=== PATIENT | male | born 1975 | race Caucasian/White ===

== ENCOUNTER → 2018-01-22 | Outpatient (CLI) | payer OTHER ==
[~2018-01-22] MED LIST: ALBU90OI INH; CEPH500 PO; IBUP800 PO; NAPR500 PO; OXYACE5T PO; PENVK500 PO; Percocet 5-3251 EACH PO; RANI150 PO; SULTRIDS PO; Ultram50 MG PO
[2018-01-22 13:30] LABS: BASOPHILS ABSOLUTE AUTO 0.05 K/mm3 (0.00-0.23); BASOPHILS PERCENT AUTO 1 % (0-2); EOSINOPHILS PERCENT AUTO 2 % (0-6); Hemoglobin 14.9 g/dL (13.5-17.5); IMMATURE GRAN ABSOLUTE AUTO 0.08 K/mm3 (0.00-0.10); IMMATURE GRAN PERCENT AUTO 1 % (0-1); LYMPHOCYTES ABSOLUTE AUTO 1.11 K/mm3 (0.84-5.20); LYMPHOCYTES PERCENT AUTO 11 % (21-46); MONOCYTES ABSOLUTE AUTO 0.73 K/mm3 (0.16-1.47); MONOCYTES PERCENT AUTO 7 % (4-13); Mean Corpuscular HGB Conc 34.7 g/dL (31.5-36.5); Mean Corpuscular Volume 81 fL (80-100); Mean Platelet Volume 9.8 fL (9.1-12.4); NEUTROPHILS ABSOLUTE AUTO 7.67 K/mm3 (1.96-9.15); NEUTROPHILS PERCENT AUTO 78 % (41-73); Platelet Count 263 K/mm3 (150-400); RDW Coefficient Variation 12.1 % (11.7-14.2); Red Blood Cell Count 5.33 M/mm3 (4.30-5.90); White Blood Cell Count 9.84 K/mm3 (4.00-11.30)
[2018-01-22 13:47] LABS: Anion Gap 9 mmol/L (6-16); Blood Urea Nitrogen 13 mg/dL (8-24); Bun/Creatinine Ratio 13.5 (12.0-20.0); CO2, Blood 28 mmol/L (21-32); Calcium, Blood 8.9 mg/dL (8.5-10.1); Chloride, Blood 104 mmol/L (98-108); Creatinine, Blood 0.96 mg/dL (0.60-1.20); Glomerular Filtration Rate >60 (60-); Glucose, Blood 99 mg/dL (70-99); Potassium, Blood 4.2 mmol/L (3.5-5.5); Sodium, Blood 141 mmol/L (136-145)
[2018-01-22 13:50] LABS: Troponin I <0.017 ng/mL (0.000-0.040)
== END ==
LOC: LAB SHORT 13:23 → LAB EV 13:23
PROVIDERS: Physician Assistant Surgical
DX: R07.9 Chest pain, unspecified (principal)
CPT/HCPCS: 80048; 84484; 85025

== ENCOUNTER → 2018-12-21 | Outpatient (CLI) | payer OTHER ==
[2018-12-21 13:27] LABS: Alanine Aminotransfer (ALT/SGP 64 U/L (12-78); Albumin, Blood 4.1 g/dL (3.4-5.0); Albumin/Globulin Ratio 1.1 (0.8-1.8); Alk Phos 92 U/L (40-126); Anion Gap 9 mmol/L (6-16); Aspartate Aminotrans (AST/SGOT 38 U/L (12-37); Bilirubin, Total 0.4 mg/dL (0.1-1.0); Blood Urea Nitrogen 15 mg/dL (8-24); Bun/Creatinine Ratio 16.5 (12.0-20.0); CO2, Blood 28 mmol/L (21-32); Chloride, Blood 101 mmol/L (98-108); Creatinine, Blood 0.91 mg/dL (0.60-1.20); Globulin, Blood 3.9 g/dL (2.2-4.0); Glomerular Filtration Rate >60 (60-); Glucose, Blood 93 mg/dL (70-99); Potassium, Blood 4.2 mmol/L (3.5-5.5); Sodium, Blood 138 mmol/L (136-145)
[2018-12-21 14:01] LABS: Prostate Specific Antigen 0.896 ng/mL (0.000-4.000)
== END | disposition home or self-care (01) ==
LOC: LAB EV 13:10 → LAB SHORT 13:10
PROVIDERS: Physician Assistant
DX: R35.0 Frequency of micturition (principal)
CPT/HCPCS: 80053; 83036; G0103

== ENCOUNTER 2019-02-06 11:16 | Day surgery (SDC) | payer OTHER ==
[~2019-02-06] VITALS: Ht 188 cm; Wt 185.5 kg
[~2019-02-06 11:16] MED LIST changes: +BACL10 PO; +Cymbalta60 MG PO; +GABA300 PO; +Norco 5-325 Ta1 EACH PO
--- NOTE | 2019-02-06 11:42 | NUR ---
AMBULATORY INTO [facility]. HISTORY AND ALLERGIES REVIEWED. NPO STATUS CONFIRMED. LUNGS WITH SCATTERED INSPIRATORY AND EXPIRATORY WHEEZES THROUGH OUT. DR. CANTU AWARE. DUONEB GIVEN.
--- NOTE | 2019-02-06 12:07 | NUR ---
ULTRASOUND UTILIZED TO PLACE #18 GUAGE IV TO RIGHT UPPER ARM.
--- NOTE | 2019-02-06 15:41 | NUR ---
INTO STEP FROM PACU RECIEVED REPORT AND PATIENT. VSS
--- NOTE | 2019-02-06 16:18 | NUR ---
GIVEN 2 RX PILLS PRIOR TO DISCHARGE PATIENT DRESSED AND ESCORTED OUT AMBULATORY WITH RN. SENT HOME WITH ALL BELONGINGS AND DISCHARGE INSTRUCTIONS
--- NOTE | 2019-02-07 12:00 | NUR ---
02/07/19 1200 Papst,Daniel D SIDE CORRECTED IN IMPLANT CHARTING
== END 2019-02-06 23:03 | disposition home or self-care (01) ==
LOC: ORSCMMR 11:16
PROVIDERS: Orthopaedic Surgery
PROC: 0LQ40ZZ Repair Left Upper Arm Tendon, Open Approach (ICD-10-PCS; principal; 2019-02-06 12:00)
DX: M66.822 Spontaneous rupture of other tendons, left upper arm (principal); G47.33 Obstructive sleep apnea (adult) (pediatric); Z87.891 Personal history of nicotine dependence; G62.9 Polyneuropathy, unspecified; E66.01 Morbid (severe) obesity due to excess calories; Z68.43 Body mass index [BMI] 50.0-59.9, adult
CPT/HCPCS: C1713; J0690; J1100; J1200; J1885; J2250; J2405; J2704; J3010; J7120

== ENCOUNTER 2019-05-27 10:42 | Emergency (ER) | payer OTHER ==
[~2019-05-27] VITALS: Ht 188 cm; Wt 178.7 kg
[2019-05-27] MEDS ORDERED: Adipex-P37.5 M1 PO (11:03)
[2019-05-27] MEDS ORDERED: QUET25 PO (11:03)
== END 2019-05-27 12:06 | disposition home or self-care (01) ==
LOC: ER 10:42
DX: S40.011A Contusion of right shoulder, initial encounter (principal); I10 Essential (primary) hypertension; Z88.1 Allergy status to other antibiotic agents; Z79.899 Other long term (current) drug therapy; W22.8XXA Striking against or struck by other objects, initial encounter
CPT/HCPCS: 73030; 99283-25

== ENCOUNTER → 2019-07-25 | Outpatient (CLI) | payer OTHER ==
[~2019-07-25] MED LIST changes: +Adipex-P37.5 M1 PO; +QUET25 PO
[2019-07-25 19:31] LABS: BASOPHILS ABSOLUTE AUTO 0.06 K/mm3 (0.00-0.23); BASOPHILS PERCENT AUTO 1 % (0-2); EOSINOPHILS PERCENT AUTO 1 % (0-6); Hematocrit 43.6 % (37.0-53.0); Hemoglobin 15.1 g/dL (13.5-17.5); IMMATURE GRAN ABSOLUTE AUTO 0.06 K/mm3 (0.00-0.10); IMMATURE GRAN PERCENT AUTO 1 % (0-1); LYMPHOCYTES ABSOLUTE AUTO 1.32 K/mm3 (0.84-5.20); LYMPHOCYTES PERCENT AUTO 13 % (21-46); MONOCYTES ABSOLUTE AUTO 0.72 K/mm3 (0.16-1.47); MONOCYTES PERCENT AUTO 7 % (4-13); Mean Corpuscular HGB 28.1 pg (26.0-34.0); Mean Corpuscular HGB Conc 34.6 g/dL (31.5-36.5); Mean Corpuscular Volume 81 fL (80-100); Mean Platelet Volume 9.9 fL (9.1-12.4); NEUTROPHILS ABSOLUTE AUTO 7.73 K/mm3 (1.96-9.15); NEUTROPHILS PERCENT AUTO 77 % (41-73); Platelet Count 293 K/mm3 (150-400); RDW Coefficient Variation 12.9 % (11.7-14.2); RDW Standard Deviation 37.6 fL (35.1-46.3); Red Blood Cell Count 5.37 M/mm3 (4.30-5.90); White Blood Cell Count 9.99 K/mm3 (4.00-11.30)
[2019-07-25 19:39] LABS: Albumin, Blood 4.4 g/dL (3.4-5.0); Albumin/Globulin Ratio 1.1 (0.8-1.8); Bilirubin, Total 0.5 mg/dL (0.1-1.0); Bun/Creatinine Ratio 12.1 (12.0-20.0); Calcium, Blood 9.1 mg/dL (8.5-10.1); Creatinine, Blood 1.32 mg/dL (0.60-1.20); Globulin, Blood 4.1 g/dL (2.2-4.0); Potassium, Blood 3.9 mmol/L (3.5-5.5); Total Protein, Blood 8.5 g/dL (6.4-8.2)
== END | disposition home or self-care (01) ==
LOC: LAB EV 19:25 → LAB SHORT 19:25
PROVIDERS: Physician Assistant
DX: B37.0 Candidal stomatitis (principal)
CPT/HCPCS: 80053; 83036; 85025

== ENCOUNTER 2023-03-15 08:23 | Day surgery (SDC) | payer OTHER ==
[~2023-03-15] VITALS: Ht 182.9 cm; Wt 168.1 kg
[2023-03-15] VITALS (22 sets, daily range): BP systolic 145–191; BP diastolic 77–116
[~2023-03-15 08:23] MED LIST changes: +ACET500 PO; +CELE200 PO; +COL-RITE PO; +GABA400 PO; +HYDR1TAB94 PO; +LOMAIRA8 MG PO; +Neurontin 100100 MG PO; +OMEP20ER PO; +Prinivil10 MG PO; +Seroquel Xr50 MG PO; +[UNRECOGNIZED DRUG - CODE] PO
--- NOTE | 2023-03-15 09:42 | NUR ---
Ambulatory in Day Surgery. Pre-Op teaching done. Pt verbalizes understanding. Patient confirms NPO status and agrees with scheduled surgery. Patient reports completing Chlorhexadine shower X2 prior to admission to hospital. Lungs clear T/O to Auscultation. History, Chart, Medications and Allergies reviewed before start of procedure.
--- NOTE | 2023-03-15 10:29 | NUR ---
SMALL ABRASION, APPROX 1" BROKEN LINE, PARTIALLY SCABBED ON LEFT LOWER LEG, [place]. NOTIFIED & ASSESSED, STATES OKAY TO PROCEED.
--- NOTE | 2023-03-15 12:10 | NUR ---
03/15/23 1210 ANNA CONCEPCION PT RECEIVED NERVE BLOCK TO OP AREA PRIOR TO OR START TIME. PROCEDURE PERFORMED BY DR. EDGE.
--- NOTE | 2023-03-15 16:05 | NUR ---
ASSUMED CARE OF PATIENT RECEIVED REPORT FORM PREVIOUS RN, ASSUMED CARE AT THIS TIME. PATIENT RESTING IN BED AT THIS TIME. VSS ON 2L O2 VIA NC. PATIENT REPORTS MODERATE PAIN, REQUESTING GABAPENTIN. PLAN TO MEDICATE ONCE ORDERED VERIFIED THROUGH PHARMACY. CALL LIGHT IN REACH.
--- NOTE | 2023-03-15 16:10 | NUR ---
FIRE SAFETY DISCUSSED WITH PATIENT, GAVE HANDOUT, PATIENT DENIES ANY SOURCE OF IGNITION PRESENT.
--- NOTE | 2023-03-15 18:13 | NUR ---
SHIFT SUMMARY NO ACUTE CHANGED SINCE ASSUMPTION OF CARE. PATIENT IS POD0 L TKA. AQUACEL, YUAN WRAP, & POLAR PACK IN PLACE TO LEFT KNEE. SCD'S AND ROSSY'S IN PLACE TO BLE. PATIENT REPORTS MINIMAL PAIN, CURRENTLY 2/10. C/O SIAT[place] PAIN IN ADDITION TO MILD KNEE PAIN. EATING, DRINKING, & VOIDING WELL. DENIES N/V. CALLS APPROPRIATELY, IN REACH.
[2023-03-16 00:07] VITALS: BP 147/87
[2023-03-16 04:36] VITALS: BP 150/82
[2023-03-16 04:57] LABS: BASOPHILS ABSOLUTE AUTO 0.02 K/mm3 (0.00-0.23); BASOPHILS PERCENT AUTO 0 % (0-2); EOSINOPHILS ABSOLUTE AUTO 0.01 K/mm3 (0.00-0.68); EOSINOPHILS PERCENT AUTO 0 % (0-6); Hematocrit 34.3 % (37.0-53.0); Hemoglobin 11.8 g/dL (13.5-17.5); IMMATURE GRAN ABSOLUTE AUTO 0.05 K/mm3 (0.00-0.10); IMMATURE GRAN PERCENT AUTO 0 % (0-1); LYMPHOCYTES ABSOLUTE AUTO 0.85 K/mm3 (0.84-5.20); LYMPHOCYTES PERCENT AUTO 7 % (21-46); MONOCYTES PERCENT AUTO 5 % (4-13); Mean Corpuscular HGB 28.3 pg (26.0-34.0); Mean Corpuscular HGB Conc 34.4 g/dL (31.5-36.5); Mean Corpuscular Volume 82 fL (80-100); Mean Platelet Volume 9.5 fL (9.1-12.4); NEUTROPHILS ABSOLUTE AUTO 11.28 K/mm3 (1.96-9.15); NEUTROPHILS PERCENT AUTO 87 % (41-73); Platelet Count 229 K/mm3 (150-400); RDW Coefficient Variation 11.9 % (11.7-14.2); RDW Standard Deviation 35.3 fL (35.1-46.3); Red Blood Cell Count 4.17 M/mm3 (4.30-5.90); White Blood Cell Count 12.91 K/mm3 (4.00-11.30)
[2023-03-16 05:40] LABS: Bun/Creatinine Ratio 18.3 (12.0-20.0); Calcium, Blood 8.3 mg/dL (8.5-10.1); Creatinine, Blood 0.93 mg/dL (0.60-1.20); Potassium, Blood 4.2 mmol/L (3.5-5.5)
--- NOTE | 2023-03-16 06:26 | NUR ---
SHIFT SUMMARY POD 1 L TKA, AQUACEL C/D/I COVERED BY YUAN WRAP, POLAR SHANNAN. PT REPORTS BASELINE N/T TO BLLE R/T NEUROPATHY AND SCIATICA. HX OF HTN W/ CURRENT ELEVATED BP'S. PT DENIES N/V, SOB, CP. PT MEDICATED 2X FOR 5-6/10 PAIN W/ 10MG OXY, RESULTS TO PT BASELINE OF 12/13. PT REMAINED ON 2L O2 DURING SLEEP R/T DECLINE IN SATS TO 92% PT REPORTS UNDIAGNOSED SLEEP APNEA. NO ACUTE CHANGES THIS SHIFT, CALL LIGHT W/IN REACH. PT PLANS FOR DISCHARGE TODAY. IGNITION ASSESSMENT COMPLETED W/ PT VERBALIZATION UNDERSTANDING OF FACILITY POLICIES.
[2023-03-16 07:15] VITALS: BP 134/75
[2023-03-16] MEDS ORDERED: ELIQUIS2.5 MG PO (08:21)
[2023-03-16] MEDS ORDERED: Percocet 5-3251 EACH PO (08:22)
--- NOTE | 2023-03-16 12:16 | NUR ---
DISCHARGE SUMMARY PT A&OX4, VSS/RA, REENA PO, VOIDING, AMB SBA FWW/GB, PAIN MANAGED, IV DC'D, FIRE RISK ASSESSED. DC INS PROVIDED. PT REP UNDERSTANDING THOSE INSTRUCTIONS. LEFT FLOOR VIA WC WITH [facility] THERAPIST TO GO HOME WITH FAMILY WITH ALL PERSONAL POSSESSIONS INCLUDING DC PACKET, 1 NARC SCRIPT/1 ELIQUIS, AQUACEL DRESSINGS, POLAR SHANNAN.
== END 2023-03-16 10:30 | disposition home or self-care (01) ==
LOC: ORSCMMR 08:23 → ORD 10:00 → ORSCMMR 10:00 → ORD 11:00 → SURS 15:17 → ORSCMMR 03-16 10:30
PROVIDERS: Orthopaedic Surgery
PROC: 0SRD0JA Replacement of Left Knee Joint with Synthetic Substitute, Uncemented, Open Approach (ICD-10-PCS; principal; 2023-03-15 10:00)
DX: M17.12 Unilateral primary osteoarthritis, left knee (principal); I10 Essential (primary) hypertension; G47.33 Obstructive sleep apnea (adult) (pediatric); K21.9 Gastro-esophageal reflux disease without esophagitis; E66.01 Morbid (severe) obesity due to excess calories; Z68.42 Body mass index [BMI] 45.0-49.9, adult; Z79.899 Other long term (current) drug therapy
CPT/HCPCS: 36415; 73560-LT; 80048; 85025; 94760; 97110; 97116; 97162; 97530; A9270; C1776; J0171; J0330; J0690; J0735; J1100; J1170; J1885; J2371; J2405; J2704; J2795; J3010; J7120

== ENCOUNTER 2023-03-17 21:32 | Emergency (ER) | payer OTHER ==
[~2023-03-17] VITALS: Ht 188 cm; Wt 167.8 kg
[~2023-03-17 21:32] MED LIST changes: +ELIQUIS2.5 MG PO
[2023-03-18 00:22] LABS: BASOPHILS ABSOLUTE AUTO 0.05 K/mm3 (0.00-0.23); BASOPHILS PERCENT AUTO 1 % (0-2); EOSINOPHILS ABSOLUTE AUTO 0.16 K/mm3 (0.00-0.68); EOSINOPHILS PERCENT AUTO 2 % (0-6); Hematocrit 29.8 % (37.0-53.0); Hemoglobin 10.4 g/dL (13.5-17.5); IMMATURE GRAN ABSOLUTE AUTO 0.05 K/mm3 (0.00-0.10); IMMATURE GRAN PERCENT AUTO 1 % (0-1); LYMPHOCYTES ABSOLUTE AUTO 1.15 K/mm3 (0.84-5.20); LYMPHOCYTES PERCENT AUTO 14 % (21-46); MONOCYTES ABSOLUTE AUTO 0.93 K/mm3 (0.16-1.47); MONOCYTES PERCENT AUTO 11 % (4-13); Mean Corpuscular HGB 29.4 pg (26.0-34.0); Mean Corpuscular HGB Conc 34.9 g/dL (31.5-36.5); Mean Corpuscular Volume 84 fL (80-100); Mean Platelet Volume 9.6 fL (9.1-12.4); NEUTROPHILS ABSOLUTE AUTO 6.12 K/mm3 (1.96-9.15); NEUTROPHILS PERCENT AUTO 72 % (41-73); Platelet Count 190 K/mm3 (150-400); RDW Standard Deviation 36.7 fL (35.1-46.3); Red Blood Cell Count 3.54 M/mm3 (4.30-5.90); White Blood Cell Count 8.46 K/mm3 (4.00-11.30)
[2023-03-18 00:40] LABS: Albumin, Blood 3.5 g/dL (3.4-5.0); Bilirubin, Total 0.3 mg/dL (0.1-1.0); Calcium, Blood 8.6 mg/dL (8.5-10.1); Creatinine, Blood 0.7 mg/dL (0.60-1.20); Globulin, Blood 3.4 g/dL (2.2-4.0); Total Protein, Blood 6.9 g/dL (6.4-8.2)
[2023-03-18 01:20] VITALS: BP 140/73
== END 2023-03-18 01:25 | disposition home or self-care (01) ==
LOC: ER 21:32
PROVIDERS: Student in an Organized Health Care Education/Training Program
DX: S81.002A Unspecified open wound, left knee, initial encounter (principal); D64.9 Anemia, unspecified; I10 Essential (primary) hypertension; Z86.718 Personal history of other venous thrombosis and embolism; Z88.1 Allergy status to other antibiotic agents; Z88.5 Allergy status to narcotic agent; Z88.8 Allergy status to other drugs, medicaments and biological substances; Z79.01 Long term (current) use of anticoagulants; Z79.899 Other long term (current) drug therapy; X58.XXXA Exposure to other specified factors, initial encounter
CPT/HCPCS: 80053; 85025; 99283

== ENCOUNTER 2023-03-26 21:22 | Inpatient (IN) | payer OTHER ==
[~2023-03-26] VITALS: Ht 188 cm; Wt 170.7 kg
[2023-03-26 21:51] LABS: BASOPHILS ABSOLUTE AUTO 0.06 K/mm3 (0.00-0.23); BASOPHILS PERCENT AUTO 1 % (0-2); EOSINOPHILS ABSOLUTE AUTO 0.27 K/mm3 (0.00-0.68); EOSINOPHILS PERCENT AUTO 3 % (0-6); Hematocrit 32.4 % (37.0-53.0); Hemoglobin 10.8 g/dL (13.5-17.5); IMMATURE GRAN ABSOLUTE AUTO 0.21 K/mm3 (0.00-0.10); IMMATURE GRAN PERCENT AUTO 2 % (0-1); LYMPHOCYTES ABSOLUTE AUTO 1.27 K/mm3 (0.84-5.20); LYMPHOCYTES PERCENT AUTO 12 % (21-46); MONOCYTES ABSOLUTE AUTO 0.83 K/mm3 (0.16-1.47); MONOCYTES PERCENT AUTO 8 % (4-13); Mean Corpuscular HGB 28.6 pg (26.0-34.0); Mean Corpuscular HGB Conc 33.3 g/dL (31.5-36.5); Mean Corpuscular Volume 86 fL (80-100); Mean Platelet Volume 8.5 fL (9.1-12.4); NEUTROPHILS ABSOLUTE AUTO 7.69 K/mm3 (1.96-9.15); NEUTROPHILS PERCENT AUTO 75 % (41-73); Platelet Count 398 K/mm3 (150-400); RDW Coefficient Variation 12.9 % (11.7-14.2); RDW Standard Deviation 39.5 fL (35.1-46.3); Red Blood Cell Count 3.78 M/mm3 (4.30-5.90); White Blood Cell Count 10.33 K/mm3 (4.00-11.30)
[2023-03-26 22:12] LABS: Albumin, Blood 3.7 g/dL (3.4-5.0); Albumin/Globulin Ratio 0.9 (0.8-1.8); Bilirubin, Total 0.4 mg/dL (0.1-1.0); Creatinine, Blood 1.16 mg/dL (0.60-1.20); Globulin, Blood 4.1 g/dL (2.2-4.0); Potassium, Blood 4.3 mmol/L (3.5-5.5); Total Protein, Blood 7.8 g/dL (6.4-8.2)
[2023-03-27 02:44] VITALS: BP 200/110
[2023-03-27 03:02] VITALS: BP 156/117
--- NOTE | 2023-03-27 03:58 | NUR ---
SHIFT SUMMARY PT ER ADMIT THIS SHIFT FOR CELLULTIS OF THE LEFT KNEE. S/P LEFT TOTAL KNEE REPLACEMENT X10 DAYS AGO. AFFECTED AREA IS RED AND INFLAMMED. INCISION SITE NOTED AND IS OPEN TO AIR. PT VERY HYPERTENSIVE ON ADMIT BUT COULD BE DUE TO CUFF SIZE. BP TAKEN WITH DIFFERENT SIZED CUFF, BP IMPROVED. PT MEDICATED FOR PAIN PER EMAR. IV ANTIBIOTICS STARTED. ADMISSION COMPLETE. PLAN IS FOR DOPPLER STUDY LATER THIS AM. FIRE RISK ASSESSED UPON ADMISSION, PT EDUCATED ON FIRE RISK AND IGNITION SOURCES. PT DENIES HAVING IGNITION SOURCES.
[2023-03-27 04:44] LABS: BASOPHILS ABSOLUTE AUTO 0.09 K/mm3 (0.00-0.23); BASOPHILS PERCENT AUTO 1 % (0-2); EOSINOPHILS ABSOLUTE AUTO 0.28 K/mm3 (0.00-0.68); EOSINOPHILS PERCENT AUTO 3 % (0-6); Hematocrit 34.2 % (37.0-53.0); Hemoglobin 11.3 g/dL (13.5-17.5); IMMATURE GRAN ABSOLUTE AUTO 0.24 K/mm3 (0.00-0.10); IMMATURE GRAN PERCENT AUTO 2 % (0-1); LYMPHOCYTES ABSOLUTE AUTO 1.36 K/mm3 (0.84-5.20); LYMPHOCYTES PERCENT AUTO 13 % (21-46); MONOCYTES ABSOLUTE AUTO 0.93 K/mm3 (0.16-1.47); MONOCYTES PERCENT AUTO 9 % (4-13); Mean Corpuscular HGB 28.5 pg (26.0-34.0); Mean Corpuscular Volume 86 fL (80-100); Mean Platelet Volume 8.6 fL (9.1-12.4); NEUTROPHILS ABSOLUTE AUTO 7.91 K/mm3 (1.96-9.15); NEUTROPHILS PERCENT AUTO 73 % (41-73); Platelet Count 381 K/mm3 (150-400); RDW Coefficient Variation 12.8 % (11.7-14.2); RDW Standard Deviation 39.6 fL (35.1-46.3); Red Blood Cell Count 3.97 M/mm3 (4.30-5.90); White Blood Cell Count 10.81 K/mm3 (4.00-11.30)
[2023-03-27 05:53] LABS: Albumin, Blood 3.9 g/dL (3.4-5.0); Bilirubin, Total 0.5 mg/dL (0.1-1.0); Bun/Creatinine Ratio 21.1 (12.0-20.0); Calcium, Blood 8.9 mg/dL (8.5-10.1); Creatinine, Blood 0.9 mg/dL (0.60-1.20); Globulin, Blood 4.1 g/dL (2.2-4.0); Potassium, Blood 4.1 mmol/L (3.5-5.5)
[2023-03-27 07:27] VITALS: BP 167/89
[2023-03-27 15:17] VITALS: BP 153/87
--- NOTE | 2023-03-27 15:42 | NUR ---
SHIFT SUMMARY PT A&OX4, VSS/RA, REENA PO, VOIDING/URINAL, PAIN MANAGED, IV RAC/ABX INFUSED PER EMAR. LEFT LEG VENOUS DUPLEX NEG FOR DVT, ORTHO CONSULT CALLED TO ANSWERING SERVICE. PLAN FOR NPO AND HOLD LOVENOX FOR POSS PROCEDURE TUESDAY. WILL REPORT TO ONCOMING NOC RN.
[2023-03-27 19:32] VITALS: BP 164/96
[2023-03-28 02:18] LABS: Vancomycin, Trough 14.6 ug/mL (5.0-10.0)
--- NOTE | 2023-03-28 04:53 | NUR ---
SHIFT SUMMARY PT A&OX4, AND COOPERATIVE WITH CARE. NO ACUTE CHANGES. PT RESTED MAJORITY OF SHIFT. MEDICATED FOR PAIN ONCE WITH OXYCODONE. NPO SINCE MIDNIGHT. VOIDING WITH BEDSIDE URINAL. CALLS APPROPRIATELY, CALL LIGHT WITHIN REACH.
[2023-03-28 05:28] VITALS: BP 138/85
[2023-03-28 07:30] VITALS: BP 131/83
[2023-03-28 14:26] VITALS: BP 162/93
--- NOTE | 2023-03-28 18:09 | NUR ---
SHIFT SUMMARY PT PAIN CONTROLLED WELL PER EMAR. HE REMAINS IND IN ROOM, UP TO CHAIR. TOLERATING PO WELL. REDNESS LOCATED TO LLE UNCHANGED DURING SHIFT. SWELLING TO LLE AND DOWN TO FOOT. PLAN IS FOR DR. ALFONSO TO SEE PATIENT. WILL CONTINUE WITH IV ABX PER EMAR.
[2023-03-28 20:10] VITALS: BP 176/97
[2023-03-29 02:24] VITALS: BP 128/71
--- NOTE | 2023-03-29 05:14 | NUR ---
SHIFT SUMMARY PT A&OX4, AND COOPERATIVE WITH CARE. NO ACUTE CHANGES. MANAGING PAIN WITH OXYCODONE. INDEPENDENT IN ROOM/BATHROOM. NPO SINCE MIDNIGHT FOR POSSIBLE PROCEDURE TODAY. CALLS APPROPRIATELY, CALL LIGHT WITHIN REACH.
[2023-03-29 07:08] VITALS: BP 143/93
[2023-03-29 14:13] VITALS: BP 149/91
[2023-03-29] MEDS ORDERED: CEFTRIAXONE2 G1 IV (16:59)
[2023-03-29] MEDS ORDERED: DOXY100 PO (17:00)
--- NOTE | 2023-03-29 18:11 | NUR ---
discharge PT LEFT VIA WHEELCHAIR. ALL BELONGINGS WITH PATIENT. PT HAS APPOINTMENT SCHEDULED AT [facility]. PAIN WELL CONTROLLED PER EMAR. PT EAGER TO BE HOME WITH HIS THERAPY DOG. NO FURTHER QUESTIONS AT THIS TIME. POWEGLIDE IN PLACE. DRESSING CDI.
== END 2023-03-29 18:10 | disposition home or self-care (01) | DRG 560 ==
LOC: ER 21:22 → SURS 03-27 01:23 → MEDS 03-27 01:23 → SURS 03-27 02:42
PROVIDERS: Student in an Organized Health Care Education/Training Program; ADMIT Student in an Organized Health Care Education/Training Program
DX: T84.54XA Infection and inflammatory reaction due to internal left knee prosthesis, initial encounter (principal); L03.116 Cellulitis of left lower limb; J44.9 Chronic obstructive pulmonary disease, unspecified; I10 Essential (primary) hypertension; M25.519 Pain in unspecified shoulder; G89.29 Other chronic pain; G62.9 Polyneuropathy, unspecified; Y83.1 Surgical operation with implant of artificial internal device as the cause of abnormal reaction of the patient, or of later complication, without mention of misadventure at the time of the procedure; Z96.653 Presence of artificial knee joint, bilateral; Z79.899 Other long term (current) drug therapy; Z79.891 Long term (current) use of opiate analgesic; Z79.01 Long term (current) use of anticoagulants; Z79.51 Long term (current) use of inhaled steroids; Z90.89 Acquired absence of other organs; Z98.890 Other specified postprocedural states; Z86.14 Personal history of Methicillin resistant Staphylococcus aureus infection; Z88.1 Allergy status to other antibiotic agents
CPT/HCPCS: 36415; 80053; 80202; 83605; 85025; 85651; 86140; 87040; 93971; 94760; 96374; 99284-25; A9270; J0690; J0696; J1650; J3370; J7050

== ENCOUNTER 2023-03-30 01:10 | Day surgery (SDC) | payer OTHER ==
[~2023-03-30 01:10] MED LIST changes: +CEFTRIAXONE2 G1 IV; +DOXY100 PO
[2023-03-30 15:48] VITALS: BP 139/82
== END 2023-03-30 16:11 | disposition home or self-care (01) ==
LOC: ATC 01:10
DX: L03.116 Cellulitis of left lower limb (principal); I10 Essential (primary) hypertension; F42.9 Obsessive-compulsive disorder, unspecified; G62.9 Polyneuropathy, unspecified; Z88.1 Allergy status to other antibiotic agents; Z88.5 Allergy status to narcotic agent
CPT/HCPCS: 96365; J0696

== ENCOUNTER 2023-03-31 03:42 | Day surgery (SDC) | payer OTHER ==
[2023-03-31 11:10] VITALS: BP 154/89
== END 2023-03-31 11:37 | disposition home or self-care (01) ==
LOC: ATC 03:42
DX: L03.116 Cellulitis of left lower limb (principal); I10 Essential (primary) hypertension; G62.9 Polyneuropathy, unspecified; Z89.612 Acquired absence of left leg above knee; Z89.611 Acquired absence of right leg above knee; Z88.1 Allergy status to other antibiotic agents; Z88.5 Allergy status to narcotic agent; Z88.8 Allergy status to other drugs, medicaments and biological substances; Z79.899 Other long term (current) drug therapy
CPT/HCPCS: 96365; J0696

== ENCOUNTER 2023-04-01 02:54 | Day surgery (SDC) | payer OTHER ==
[2023-04-01 11:09] VITALS: BP 180/100
[2023-04-01 11:35] VITALS: BP 153/82
== END 2023-04-01 11:32 | disposition home or self-care (01) ==
LOC: ATC 02:54
DX: L03.116 Cellulitis of left lower limb (principal); I10 Essential (primary) hypertension; Z89.512 Acquired absence of left leg below knee; Z89.511 Acquired absence of right leg below knee; Z88.1 Allergy status to other antibiotic agents; Z88.8 Allergy status to other drugs, medicaments and biological substances; G62.9 Polyneuropathy, unspecified
CPT/HCPCS: 96365; J0696

== ENCOUNTER 2023-04-02 02:12 | Day surgery (SDC) | payer OTHER ==
[2023-04-02 11:51] VITALS: BP 150/89
== END 2023-04-02 12:10 | disposition home or self-care (01) ==
LOC: ATC 02:12
DX: L03.116 Cellulitis of left lower limb (principal); I10 Essential (primary) hypertension; G62.9 Polyneuropathy, unspecified; Z88.1 Allergy status to other antibiotic agents; Z88.5 Allergy status to narcotic agent; Z79.899 Other long term (current) drug therapy
CPT/HCPCS: J0696

== ENCOUNTER 2023-04-03 01:30 | Day surgery (SDC) | payer OTHER ==
[2023-04-03 11:35] VITALS: BP 161/84
== END 2023-04-03 12:08 | disposition home or self-care (01) ==
LOC: ATC 01:30
DX: L03.116 Cellulitis of left lower limb (principal); I10 Essential (primary) hypertension; Z88.1 Allergy status to other antibiotic agents; Z88.0 Allergy status to penicillin; Z79.899 Other long term (current) drug therapy
CPT/HCPCS: 96365; J0696

== ENCOUNTER 2023-04-04 02:07 | Day surgery (SDC) | payer OTHER ==
[2023-04-04 11:02] VITALS: BP 140/90
== END 2023-04-04 11:26 | disposition home or self-care (01) ==
LOC: ATC 02:07
DX: L03.116 Cellulitis of left lower limb (principal); I10 Essential (primary) hypertension; G62.9 Polyneuropathy, unspecified; Z96.653 Presence of artificial knee joint, bilateral; M25.561 Pain in right knee; M25.562 Pain in left knee; M79.89 Other specified soft tissue disorders
CPT/HCPCS: 73560-RT; 73562-LT; 96374; J0696

== ENCOUNTER 2023-04-05 02:32 | Day surgery (SDC) | payer OTHER ==
[2023-04-05 11:13] VITALS: BP 158/79
== END 2023-04-05 11:39 | disposition home or self-care (01) ==
LOC: ATC 02:32
DX: L03.116 Cellulitis of left lower limb (principal); I10 Essential (primary) hypertension; G62.9 Polyneuropathy, unspecified; Z88.1 Allergy status to other antibiotic agents; Z88.5 Allergy status to narcotic agent; Z79.899 Other long term (current) drug therapy
CPT/HCPCS: 96365; J0696

== ENCOUNTER 2023-04-06 01:45 | Day surgery (SDC) | payer OTHER ==
[2023-04-06 11:13] VITALS: BP 141/93
== END 2023-04-06 11:33 | disposition home or self-care (01) ==
LOC: ATC 01:45
DX: L03.116 Cellulitis of left lower limb (principal); I10 Essential (primary) hypertension; Z79.899 Other long term (current) drug therapy; Z96.653 Presence of artificial knee joint, bilateral; Z88.1 Allergy status to other antibiotic agents; Z88.5 Allergy status to narcotic agent; G62.9 Polyneuropathy, unspecified
CPT/HCPCS: 96365; J0696

== ENCOUNTER 2023-04-07 02:06 | Day surgery (SDC) | payer OTHER ==
[2023-04-07 11:00] VITALS: BP 152/94
== END 2023-04-07 11:24 | disposition home or self-care (01) ==
LOC: ATC 02:06
DX: L03.116 Cellulitis of left lower limb (principal)
CPT/HCPCS: 96365; J0696

== ENCOUNTER 2023-04-08 01:09 | Day surgery (SDC) | payer OTHER ==
[2023-04-08 11:07] VITALS: BP 149/87
== END 2023-04-08 11:33 | disposition home or self-care (01) ==
LOC: ATC 01:09
DX: L03.116 Cellulitis of left lower limb (principal); I10 Essential (primary) hypertension; F42.9 Obsessive-compulsive disorder, unspecified; G62.9 Polyneuropathy, unspecified; Z96.653 Presence of artificial knee joint, bilateral; Z72.0 Tobacco use; Z88.1 Allergy status to other antibiotic agents; Z88.5 Allergy status to narcotic agent; Z88.8 Allergy status to other drugs, medicaments and biological substances
CPT/HCPCS: 96365; J0696

== ENCOUNTER 2023-04-09 00:50 | Day surgery (SDC) | payer OTHER ==
[2023-04-09 11:30] VITALS: BP 132/81
== END 2023-04-09 11:56 | disposition home or self-care (01) ==
LOC: ATC 00:50
DX: L03.116 Cellulitis of left lower limb (principal); I10 Essential (primary) hypertension; G62.9 Polyneuropathy, unspecified; Z88.1 Allergy status to other antibiotic agents; Z88.5 Allergy status to narcotic agent; Z79.899 Other long term (current) drug therapy
CPT/HCPCS: 96365; J0696

== ENCOUNTER 2023-04-10 01:17 | Day surgery (SDC) | payer OTHER ==
[2023-04-10 11:38] VITALS: BP 158/90
== END 2023-04-10 12:00 | disposition home or self-care (01) ==
LOC: ATC 01:17
DX: L03.116 Cellulitis of left lower limb (principal); I10 Essential (primary) hypertension; G62.9 Polyneuropathy, unspecified; Z88.1 Allergy status to other antibiotic agents; Z88.5 Allergy status to narcotic agent; Z79.899 Other long term (current) drug therapy
CPT/HCPCS: 96365; J0696

== ENCOUNTER 2023-04-11 02:19 | Day surgery (SDC) | payer OTHER ==
[2023-04-11 11:16] VITALS: BP 150/92
== END 2023-04-11 11:44 | disposition home or self-care (01) ==
LOC: ATC 02:19
DX: L03.116 Cellulitis of left lower limb (principal); I10 Essential (primary) hypertension; G62.9 Polyneuropathy, unspecified; Z88.1 Allergy status to other antibiotic agents; Z88.5 Allergy status to narcotic agent; Z79.899 Other long term (current) drug therapy
CPT/HCPCS: 96365; J0696

== ENCOUNTER 2023-04-12 01:53 | Day surgery (SDC) | payer OTHER ==
[2023-04-12 11:12] VITALS: BP 146/90
== END 2023-04-12 11:35 | disposition home or self-care (01) ==
LOC: ATC 01:53
DX: L03.116 Cellulitis of left lower limb (principal); I10 Essential (primary) hypertension; G62.9 Polyneuropathy, unspecified; Z96.653 Presence of artificial knee joint, bilateral; Z88.8 Allergy status to other drugs, medicaments and biological substances; Z88.1 Allergy status to other antibiotic agents
CPT/HCPCS: 96365; J0696

== ENCOUNTER 2023-05-21 23:00 | Emergency (ER) | payer OTHER ==
[~2023-05-21] VITALS: Ht 188 cm; Wt 165.6 kg
[2023-05-22] MEDS ORDERED: BACLOFEN10 M4 PO (00:09)
[2023-05-22] MEDS ORDERED: SULFAMETHOXAZO1 EAC1 PO (00:10)
[2023-05-22] MEDS ORDERED: CEFU250T47 PO (00:10)
[2023-05-22 00:13] LABS: BASOPHILS ABSOLUTE AUTO 0.05 K/mm3 (0.00-0.23); BASOPHILS PERCENT AUTO 1 % (0-2); EOSINOPHILS ABSOLUTE AUTO 0.16 K/mm3 (0.00-0.68); EOSINOPHILS PERCENT AUTO 2 % (0-6); Hematocrit 37.2 % (37.0-53.0); Hemoglobin 12.2 g/dL (13.5-17.5); IMMATURE GRAN ABSOLUTE AUTO 0.04 K/mm3 (0.00-0.10); IMMATURE GRAN PERCENT AUTO 1 % (0-1); LYMPHOCYTES PERCENT AUTO 15 % (21-46); MONOCYTES ABSOLUTE AUTO 0.57 K/mm3 (0.16-1.47); MONOCYTES PERCENT AUTO 7 % (4-13); Mean Corpuscular HGB 27.2 pg (26.0-34.0); Mean Corpuscular HGB Conc 32.8 g/dL (31.5-36.5); Mean Corpuscular Volume 83 fL (80-100); Mean Platelet Volume 9.4 fL (9.1-12.4); NEUTROPHILS ABSOLUTE AUTO 5.94 K/mm3 (1.96-9.15); NEUTROPHILS PERCENT AUTO 75 % (41-73); Platelet Count 200 K/mm3 (150-400); RDW Coefficient Variation 12.4 % (11.7-14.2); Red Blood Cell Count 4.48 M/mm3 (4.30-5.90); White Blood Cell Count 7.96 K/mm3 (4.00-11.30)
[2023-05-22 00:32] LABS: Albumin, Blood 3.6 g/dL (3.4-5.0); Bilirubin, Total 0.2 mg/dL (0.1-1.0); Calcium, Blood 8.5 mg/dL (8.5-10.1); Creatinine, Blood 1.13 mg/dL (0.60-1.20); Globulin, Blood 3.6 g/dL (2.2-4.0); Potassium, Blood 4.2 mmol/L (3.5-5.5); Total Protein, Blood 7.2 g/dL (6.4-8.2)
[2023-05-22] MEDS ORDERED: HYDROCODONE-AC1 EA19 PO (00:42)
[2023-05-22] MEDS ORDERED: Vibramycin100 MG PO (01:31)
[2023-05-22] MEDS ORDERED: Keflex500 MG PO (01:31)
[2023-05-22 01:33] VITALS: BP 155/81
== END 2023-05-22 01:37 | disposition home or self-care (01) ==
LOC: ER 23:00
PROVIDERS: Student in an Organized Health Care Education/Training Program
DX: L03.116 Cellulitis of left lower limb (principal); I10 Essential (primary) hypertension; Z88.1 Allergy status to other antibiotic agents; Z88.5 Allergy status to narcotic agent; Z88.8 Allergy status to other drugs, medicaments and biological substances; Z79.891 Long term (current) use of opiate analgesic; Z79.899 Other long term (current) drug therapy
CPT/HCPCS: 80053; 85025; 93971; 96365; 99284-25; A9270; J0690

== ENCOUNTER 2024-07-09 02:24 | Day surgery (SDC) | payer OTHER ==
[~2024-07-09 02:24] MED LIST changes: +BACLOFEN10 M4 PO; +CEFU250T47 PO; +HYDROCODONE-AC1 EA19 PO; +Keflex500 MG PO; +SULFAMETHOXAZO1 EAC1 PO; +Vibramycin100 MG PO
[2024-07-09] MEDS ORDERED: Lidocaine HCl 4% Cream 5 GM ONE (13:05)
== END 2024-07-10 00:21 | disposition home or self-care (01) ==
LOC: WOUND 02:24
DX: I87.312 Chronic venous hypertension (idiopathic) with ulcer of left lower extremity (principal); L97.822 Non-pressure chronic ulcer of other part of left lower leg with fat layer exposed; I73.9 Peripheral vascular disease, unspecified; I10 Essential (primary) hypertension; Z88.1 Allergy status to other antibiotic agents; Z88.8 Allergy status to other drugs, medicaments and biological substances
CPT/HCPCS: A6213; A9270; G0463

== ENCOUNTER 2024-07-19 03:11 | Day surgery (SDC) | payer OTHER ==
[2024-07-19] MEDS ORDERED: Lidocaine HCl 4% Cream 5 GM ONE (07:53)
== END 2024-07-19 23:32 | disposition home or self-care (01) ==
LOC: WOUND 03:11
DX: I87.312 Chronic venous hypertension (idiopathic) with ulcer of left lower extremity (principal); L97.822 Non-pressure chronic ulcer of other part of left lower leg with fat layer exposed; L89.894 Pressure ulcer of other site, stage 4; I73.9 Peripheral vascular disease, unspecified; I87.2 Venous insufficiency (chronic) (peripheral)
CPT/HCPCS: A6213; A9270

== ENCOUNTER 2024-09-12 00:47 | Day surgery (SDC) | payer OTHER ==
[2024-09-12] MEDS ORDERED: Lidocaine HCl 4% Cream 5 GM ONE (08:02)
== END 2024-09-12 23:00 | disposition home or self-care (01) ==
LOC: WOUND 00:47
DX: I87.312 Chronic venous hypertension (idiopathic) with ulcer of left lower extremity (principal); L97.822 Non-pressure chronic ulcer of other part of left lower leg with fat layer exposed; L89.894 Pressure ulcer of other site, stage 4; I73.9 Peripheral vascular disease, unspecified; I87.2 Venous insufficiency (chronic) (peripheral)
CPT/HCPCS: A6213; A9270

== ENCOUNTER 2024-09-19 08:07 | Emergency (ER) | payer OTHER ==
[~2024-09-19] VITALS: Ht 188 cm; Wt 172.4 kg
[2024-09-19 08:29] LABS: BASOPHILS ABSOLUTE AUTO 0.05 K/mm3 (0.00-0.23); BASOPHILS PERCENT AUTO 1 % (0-2); EOSINOPHILS ABSOLUTE AUTO 0.09 K/mm3 (0.00-0.68); EOSINOPHILS PERCENT AUTO 1 % (0-6); Hematocrit 40.8 % (37.0-53.0); Hemoglobin 14.3 g/dL (13.5-17.5); IMMATURE GRAN ABSOLUTE AUTO 0.05 K/mm3 (0.00-0.10); IMMATURE GRAN PERCENT AUTO 1 % (0-1); LYMPHOCYTES ABSOLUTE AUTO 0.86 K/mm3 (0.84-5.20); LYMPHOCYTES PERCENT AUTO 9 % (21-46); MONOCYTES ABSOLUTE AUTO 0.48 K/mm3 (0.16-1.47); MONOCYTES PERCENT AUTO 5 % (4-13); Mean Corpuscular HGB 28.5 pg (26.0-34.0); Mean Corpuscular Volume 81 fL (80-100); Mean Platelet Volume 9.5 fL (9.1-12.4); NEUTROPHILS ABSOLUTE AUTO 7.68 K/mm3 (1.96-9.15); NEUTROPHILS PERCENT AUTO 84 % (41-73); Platelet Count 253 K/mm3 (150-400); RDW Coefficient Variation 12.6 % (11.7-14.2); Red Blood Cell Count 5.02 M/mm3 (4.30-5.90); White Blood Cell Count 9.21 K/mm3 (4.00-11.30)
[2024-09-19 08:52] LABS: Albumin, Blood 3.8 g/dL (3.4-5.0); Bilirubin, Total 0.5 mg/dL (0.1-1.0); Bun/Creatinine Ratio 12.4 (12.0-20.0); Calcium, Blood 9.4 mg/dL (8.5-10.1); Creatinine, Blood 0.89 mg/dL (0.60-1.20); Potassium, Blood 3.8 mmol/L (3.5-5.5); Total Protein, Blood 7.8 g/dL (6.4-8.2)
[2024-09-19 11:45] VITALS: BP 166/104
== END 2024-09-19 11:52 | disposition home or self-care (01) ==
LOC: ER 08:07
PROVIDERS: Student in an Organized Health Care Education/Training Program
DX: R07.89 Other chest pain (principal); Z79.899 Other long term (current) drug therapy; Z59.89 Other problems related to housing and economic circumstances
CPT/HCPCS: 71046; 80053; 84484; 85025; 93005; 93010; 99285-25

== ENCOUNTER 2024-09-24 04:29 | Day surgery (SDC) | payer OTHER | END 2024-09-24 23:00 | disposition home or self-care (01) | LOC: WOUND 04:29 | DX: I87.312 Chronic venous hypertension (idiopathic) with ulcer of left lower extremity (principal); L97.822 Non-pressure chronic ulcer of other part of left lower leg with fat layer exposed; I73.9 Peripheral vascular disease, unspecified; I87.2 Venous insufficiency (chronic) (peripheral) | CPT/HCPCS: A6213; G0463 ==

== ENCOUNTER 2024-10-09 01:36 | Day surgery (SDC) | payer OTHER | END 2024-10-09 23:00 | disposition home or self-care (01) | LOC: WOUND 01:36 | DX: I87.312 Chronic venous hypertension (idiopathic) with ulcer of left lower extremity (principal); L97.822 Non-pressure chronic ulcer of other part of left lower leg with fat layer exposed; I87.2 Venous insufficiency (chronic) (peripheral); I73.9 Peripheral vascular disease, unspecified; G62.9 Polyneuropathy, unspecified ==

== ENCOUNTER 2024-10-16 09:18 | Day surgery (SDC) | payer OTHER | END 2024-10-16 23:00 | disposition home or self-care (01) | LOC: WOUND 09:18 | DX: I87.312 Chronic venous hypertension (idiopathic) with ulcer of left lower extremity (principal); L97.822 Non-pressure chronic ulcer of other part of left lower leg with fat layer exposed; I73.9 Peripheral vascular disease, unspecified; I87.2 Venous insufficiency (chronic) (peripheral) ==

== ENCOUNTER → 2024-12-20 | Outpatient (CLI) | payer OTHER ==
[2024-12-20 12:15] LABS: BASOPHILS ABSOLUTE AUTO 0.05 K/mm3 (0.00-0.23); BASOPHILS PERCENT AUTO 1 % (0-2); EOSINOPHILS ABSOLUTE AUTO 0.08 K/mm3 (0.00-0.68); EOSINOPHILS PERCENT AUTO 1 % (0-6); Hematocrit 37.2 % (37.0-53.0); Hemoglobin 12.9 g/dL (13.5-17.5); IMMATURE GRAN ABSOLUTE AUTO 0.07 K/mm3 (0.00-0.10); IMMATURE GRAN PERCENT AUTO 1 % (0-1); LYMPHOCYTES PERCENT AUTO 14 % (21-46); MONOCYTES ABSOLUTE AUTO 0.62 K/mm3 (0.16-1.47); MONOCYTES PERCENT AUTO 7 % (4-13); Mean Corpuscular HGB 28.5 pg (26.0-34.0); Mean Corpuscular HGB Conc 34.7 g/dL (31.5-36.5); Mean Corpuscular Volume 82 fL (80-100); Mean Platelet Volume 9.5 fL (9.1-12.4); NEUTROPHILS ABSOLUTE AUTO 7.02 K/mm3 (1.96-9.15); NEUTROPHILS PERCENT AUTO 77 % (41-73); Platelet Count 225 K/mm3 (150-400); RDW Standard Deviation 36.1 fL (35.1-46.3); Red Blood Cell Count 4.53 M/mm3 (4.30-5.90); White Blood Cell Count 9.14 K/mm3 (4.00-11.30)
[2024-12-20 12:27] LABS: Albumin, Blood 3.5 g/dL (3.4-5.0); Albumin/Globulin Ratio 0.9 (0.8-1.8); Bilirubin, Total 0.3 mg/dL (0.1-1.0); Bun/Creatinine Ratio 14.5 (12.0-20.0); Calcium, Blood 8.3 mg/dL (8.5-10.1); Creatinine, Blood 0.83 mg/dL (0.60-1.20); Globulin, Blood 3.7 g/dL (2.2-4.0); Magnesium, Blood 1.7 mg/dL (1.6-2.4); Potassium, Blood 3.7 mmol/L (3.5-5.5); Total Protein, Blood 7.2 g/dL (6.4-8.2)
== END ==
LOC: LAB 12:10 → LAB SHORT 12:10
PROVIDERS: Emergency Medicine
DX: R19.7 Diarrhea, unspecified (principal)
CPT/HCPCS: 80053; 83735; 85025